=== PATIENT | male | born 1975 | race American Indian/Alaskan Native ===

== ENCOUNTER 2021-02-03 07:53 | Observation (INO) | payer OTHER ==
[2021-02-03 08:56] LABS: Basophils # (Auto) 0.1 K/mm3 (0.0-0.1); Basophils % (Auto) 0.9 % (0.0-1.8); Eosinophils # (Auto) 0.1 K/mm3 (0.0-0.4); Eosinophils % (Auto) 1.2 % (0.0-4.3); Hematocrit 35.2 % (35.5-45.6); Hemoglobin 12.5 gm/dl (11.8-15.2); Lymphocytes # (Auto) 1.5 K/mm3 (1.2-5.4); Lymphocytes % (Auto) 16.8 % (13.4-35.0); Mean Corpuscular HGB Conc 36 % (32-34); Mean Corpuscular Volume 88 fl (84-94); Monocytes # (Auto) 0.4 K/mm3 (0.0-0.8); Monocytes % (Auto) 4.4 % (0.0-7.3); Platelet Count 218 K/mm3 (140-440); Red Blood Count 4.01 M/mm3 (3.65-5.03); Red Cell Distribution Width 12.8 % (13.2-15.2)
[2021-02-03] MEDS: SODIUM CHLORIDE 0.9% 500 ML 500 ML IV SCH ×3 (09:00→10:35)
[2021-02-03 09:07] LABS: BUN/Creatinine Ratio 17; Blood Urea Nitrogen 15 mg/dL (9-20); Calcium 9.7 mg/dL (8.4-10.2); Hemolysis Index 0; INR 0.95 (0.87-1.13)
[2021-02-03 09:08] LABS: Partial Thromboplastin Time 32.5 Sec. (24.2-36.6)
[2021-02-03] MEDS ORDERED: ASPIRIN 81 MG TAB CHEW PO SCH (10:00)
[2021-02-03] MEDS: fentaNYL 100 MCG/2 ML INJ ONE ×3 (10:24→11:08)
[2021-02-03] MEDS: MIDAZOLAM 2 MG/2 ML INJ ONE ×2 (10:24→10:37)
[2021-02-03] MEDS: VERAPAMIL 5 MG/2 ML INJ ONE ×2 (10:25→10:46)
[2021-02-03] MEDS: LIDOCAINE (2%) 20 MG/1 ML VIAL 20 ML MDV INFILTRATI ONE ×2 (10:25→10:37)
[2021-02-03] MEDS: HEPARIN 10,000 UNITS/10 ML VIAL ONE ×6 (10:25→11:44)
[2021-02-03] MEDS: NITROGLYCERIN SYRINGE 3 ML ONE ×2 (10:27→10:46)
[2021-02-03] MEDS: HEPARIN/NS 5000 UNIT/500ML 1,000 ML IR ONE ×2 (10:27→10:35)
[2021-02-03] MEDS ORDERED: NITROGLYCERIN SYRINGE 3 ML ONE (11:13)
--- NOTE | 2021-02-03 11:20 | Electrocardiograph Report ---
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
[2021-02-03] MEDS ORDERED: ALUM-MAG HYDROXIDE-SIMETHICONE 200-200-20MG/5ML ORAL LIQD 30 ML ONE (11:26)
[2021-02-03] MEDS ORDERED: CLOPIDOGREL 75 MG TAB ONE (11:26)
[2021-02-03] MEDS ORDERED: HEPARIN 10,000 UNITS/10 ML VIAL ONE (11:33)
--- NOTE | 2021-02-03 11:53 | Event Note ---
Date: 02/03/21 Patient presented for outpatient coronary intervention. A cardiac catheterization at another hospital revealed severe diffuse disease of the right coronary artery. We performed successful angioplasty with serial deployment of 3.5 mm drug-eluting stent in the proximal mid and distal segments of the right coronary artery. Excellent angiographic result post intervention. No complications. The patient will be placed on optimal medical therapy including dual oral antiplatelet therapy with aspirin and Plavix. He will be admitted for 23 post intervention observation, anticipate discharge tomorrow morning.
[2021-02-03] MEDS ORDERED: SODIUM CHLORIDE 0.9% 1000 ML 1,000 ML IV SCH (12:00)
[2021-02-03] MEDS ORDERED: ACETAMINOPHEN 325 MG TAB PO PRN (12:00)
[2021-02-03] MEDS ORDERED: ONDANSETRON 4 MG/2 ML INJ IV PRN (12:30)
--- NOTE | 2021-02-03 12:37 | Cardiac Catherization Report ---
DATE OF SERVICE: 02/03/2021 CORONARY ANGIOPLASTY REPORT REASON FOR PROCEDURE: The patient is a 46-year-old man who underwent an outpatient cardiac catheterization at another hospital for chest pain and abnormal noninvasive studies, found with severe diffuse disease of the proximal and mid segments of the right coronary artery. There was a long, 85% stenosis of the proximal segment, followed by another long 80% stenosis of the mid segment, followed by another 85-90% stenosis just after the acute margin. He was referred for coronary intervention. The patient has already been treated with maximal antianginal medications as well as a dual oral antiplatelet therapy. PROCEDURES: 1. Coronary angioplasty and stenting of the right coronary artery. 2. Sedation time start 10:37, end 11:21. DESCRIPTION OF PROCEDURE: The patient was prepped and draped in a sterile fashion after informed consent. The right radial cath site was prepped and draped after negative Rafael's test. The right radial artery was entered using Seldinger technique followed by placement of a 6-Finnish hydrophilic sheath. Routine radial cocktail was administered via the sheath. We selected a #1 right Amplatz guiding catheter and advanced to the right coronary ostium. Pre-intervention angiograms were taken. A 0.014 inch Electrical Instrument Technician 50 guidewire was then introduced into the vessel, across the lesional segments. After wire placement in the distal vessel, we then used a 3.0 mm balloon catheter to predilate the diffusely diseased vessel at these lesional segments. We then commenced serial stenting, with a 3.5 mm drug-eluting stents deployed from just beyond the acute margin, all the way to the proximal segment. Following stenting and post-dilatation, there was an excellent angiographic result, zero residual stenosis and SERA 3 flow maintained on this vessel. The procedure was well tolerated by the patient and there were no complications. The catheters and wires were removed, sheath removed and hemostasis achieved using a TR band. The patient was returned to the postprocedure unit in stable condition. CONCLUSION: Successful angioplasty and stenting of the diffusely diseased right coronary artery, with serial, 3.5 mm drug-eluting stents deployed in the proximal, mid segment and beyond the acute margin. TID: [id number] RECEIPT: [id number] CA/PRE
[2021-02-03] MEDS ORDERED: traMADol 50 MG TAB PO PRN (13:00)
[2021-02-03] MEDS: VALSARTAN 40 MG TAB PO SCH (15:43)
[2021-02-03] MEDS ORDERED: ZOLPIDEM 5 MG TAB PO PRN (22:00)
[2021-02-03] MEDS: carvediloL 3.125 MG TAB PO SCH (23:15)
[2021-02-04 06:11] LABS: Basophils % (Auto) 0.2 % (0.0-1.8); Eosinophils # (Auto) 0.1 K/mm3 (0.0-0.4); Eosinophils % (Auto) 1.3 % (0.0-4.3); Hematocrit 32.6 % (35.5-45.6); Hemoglobin 11.3 gm/dl (11.8-15.2); Lymphocytes # (Auto) 1.3 K/mm3 (1.2-5.4); Lymphocytes % (Auto) 16.4 % (13.4-35.0); Mean Corpuscular HGB Conc 35 % (32-34); Mean Corpuscular Volume 89 fl (84-94); Monocytes # (Auto) 0.5 K/mm3 (0.0-0.8); Monocytes % (Auto) 5.8 % (0.0-7.3); Platelet Count 199 K/mm3 (140-440); Red Blood Count 3.67 M/mm3 (3.65-5.03); Red Cell Distribution Width 12.8 % (13.2-15.2)
[2021-02-04 06:34] LABS: BUN/Creatinine Ratio 13; Blood Urea Nitrogen 13 mg/dL (9-20); Calcium 8.9 mg/dL (8.4-10.2); Hemolysis Index 2
[2021-02-04 06:45] LABS: Chol/HDL Ratio 3.69 %; HDL Cholesterol 33 mg/dL (40-59); LDL Cholesterol,Direct 79 mg/dL (50-130)
--- NOTE | 2021-02-04 08:40 | XRay Report ---
CHEST 1 VIEW INDICATION: post pci. COMPARISON: None FINDINGS: Support devices: None. Heart: Borderline to mild cardiomegaly is evident. Lungs/Pleura: Lungs are clear with no evidence for infiltrate, pleural fluid or pneumothorax. Additional findings: None. IMPRESSION: Borderline to mild cardiomegaly. Lungs clear. Signer Name: Santi Bee Jr, MD Signed: 02/04/2021 8:36 AM Workstation Name: [id number]
[2021-02-04 08:45] VITALS: BP 118/83
[2021-02-04] MEDS: VALSARTAN 40 MG TAB PO SCH (09:00)
[2021-02-04] MEDS: carvediloL 3.125 MG TAB PO SCH (09:01)
--- NOTE | 2021-02-04 09:53 | Short Stay Summary ---
Short Stay Documentation Date of service: 02/04/21 - History H&P: obtained from office - Allergies and Medications Current Medications: Allergies No Known Allergies Allergy (Unverified 02/03/21 08:30) Home Medications Medication Instructions Recorded Confirmed Last Taken Type Aspirin [Aspirin BABY CHEW TAB] 81 mg PO QDAY 02/03/21 02/03/21 02/03/21 08:40 History 81 mg AtorvaSTATin [Lipitor] 40 mg PO QHS 02/03/21 02/03/21 02/02/21 History 1 tab Clopidogrel [Plavix] 75 mg PO QDAY 02/03/21 02/03/21 02/03/21 History 0840 Furosemide [Lasix] 40 mg PO DAILY 02/03/21 02/03/21 02/02/21 History 1 tab Nitroglycerin [Nitrostat] 0.4 mg SL Q5M PRN 02/03/21 02/03/21 Unknown History Valsartan [Diovan] 40 mg PO DAILY 02/03/21 02/03/21 02/02/21 History 1 tab carvediloL [Coreg] 3.125 mg PO BID 02/03/21 02/03/21 02/02/21 History 2 tabs Active Medications Acetaminophen (Acetaminophen 325 Mg Tab) 650 mg PO Q4H PRN PRN Reason: Pain MILD(1-3)/Fever >100.5/CASTILLO Aspirin (Aspirin 81 Mg Tab Chew) 81 mg PO QDAY [facility] Last Admin: 02/04/21 09:00 Dose: 81 mg Documented by: Atorvastatin Calcium (Atorvastatin 40 Mg Tab) 40 mg PO QHS [facility] Last Admin: 02/03/21 23:15 Dose: 40 mg Documented by: Carvedilol (Carvedilol 3.125 Mg Tab) 3.125 mg PO BID [facility] Last Admin: 02/04/21 09:01 Dose: 3.125 mg Documented by: Clopidogrel Bisulfate (Clopidogrel 75 Mg Tab) 75 mg PO QDAY [facility] Last Admin: 02/04/21 09:00 Dose: 75 mg Documented by: Furosemide (Furosemide 40 Mg Tab) 40 mg PO DAILY [facility] Last Admin: 02/04/21 09:01 Dose: 40 mg Documented by: Isosorbide Mononitrate (Isosorbide Mononitrate Er 30 Mg Tab) 30 mg PO QDAY [facility] Last Admin: 02/04/21 09:01 Dose: 30 mg Documented by: Ondansetron HCl (Ondansetron 4 Mg/2 Ml Inj) 4 mg IV Q8H PRN PRN Reason: N/V unrelieved by Reglan Potassium Chloride (Potassium Chloride Er 10 Meq Tab) 10 meq PO QDAY [facility] Last Admin: 02/04/21 09:01 Dose: 10 meq Documented by: Potassium Chloride (Potassium Chloride Er 20 Meq Tab) 40 meq PO ONCE ONE Stop: 02/04/21 09:43 Tramadol HCl (Tramadol 50 Mg Tab) 50 mg PO Q4H PRN PRN Reason: Pain, Mild (1-3) Valsartan (Valsartan 40 Mg Tab) 40 mg PO DAILY [facility] Last Admin: 02/04/21 09:00 Dose: 40 mg Documented by: Zolpidem Tartrate (Zolpidem 5 Mg Tab) 5 mg PO QHS PRN PRN Reason: Sleep - Physical exam General appearance: no acute distress HEENT: PERRLA Lungs: Clear to auscultation Heart: Regular rate, Normal S1, Normal S2 Extremities: No edema - Brief post op/procedure progress note Procedure: Patient presented for outpatient coronary intervention. A cardiac catheterization at another hospital revealed severe diffuse disease of the right coronary artery. We performed successful angioplasty with serial deployment of 3.5 mm drug-eluting stent in the proximal mid and distal segments of the right coronary artery. Excellent angiographic result post intervention. No complications. Condition: stable - Hospital course Hospital course: Stable overnight observation. - Disposition Condition at discharge: Good Disposition: DC-01 TO HOME OR SELFCARE Short Stay Discharge Plan Activity: advance as tolerated Weight Bearing Status: Full Weight Bearing Diet: low fat, low cholesterol, low salt Wound: open to air, keep clean and dry Follow up with: PRIMARY CARE, [Primary Care Provider] - 7 Days MINA ORTIZ MD [Staff Physician] - 7 Days Prescriptions: ISOSORBIDE MONOnitrate [Imdur ER] 30 mg PO QDAY #30 tablet Potassium Chloride [K-Dur] 10 meq PO QDAY #30 tablet
--- NOTE | 2021-02-04 09:56 | Electrocardiograph Report ---
[facility] Test Date: 2021-02-03 Test Time: 12:07:00 Pat Name: TIFFANY JEFFERY Department: ED Room: A453 Gender: M Program Aide: NAYAN : 1975 Requested By: YESI MOREIRA Order Number: [id number] Reading MD: Tee Luna Measurements Intervals [place] Rate: 61 P: 17 VT: 145 QRS: -9 QRSD: 100 T: QT: 424 QTc: 428 Interpretive Statements Sinus rhythm Left ventricular hypertrophy Nonspecific T abnormalities, lateral leads Compared to ECG 02/03/2021 09:02:52 T-wave abnormality now present Electronically Signed On 02-04-2021 9:55:46 EDT by Tee Luna
[2021-02-04] MEDS ORDERED: CLOPIDOGREL 75 MG TAB PO SCH (10:00)
[2021-02-04] MEDS ORDERED: ASPIRIN 81 MG TAB CHEW PO SCH (10:00)
[2021-02-04] MEDS ORDERED: POTASSIUM CHLORIDE ER 10 MEQ TAB PO SCH (10:00)
[2021-02-04] MEDS ORDERED: FUROSEMIDE 40 MG TAB PO SCH (10:00)
--- NOTE | 2021-02-04 10:05 | Electrocardiograph Report ---
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
[2021-02-04] MEDS ORDERED: POTASSIUM CHLORIDE ER 20 MEQ TAB PO SCH (14:00)
== END 2021-02-04 13:05 | disposition home or self-care (01) ==
LOC: CATHLABREC 07:53 → 4A 11:47
PROVIDERS: ADMIT Internal Medicine Cardiovascular Disease; ATTEND Internal Medicine Cardiovascular Disease
DX: I25.10 Atherosclerotic heart disease of native coronary artery without angina pectoris (principal); I11.0 Hypertensive heart disease with heart failure; I50.9 Heart failure, unspecified; I42.0 Dilated cardiomyopathy; E66.9 Obesity, unspecified; R94.31 Abnormal electrocardiogram [ECG] [EKG]; Z98.61 Coronary angioplasty status; Z79.82 Long term (current) use of aspirin; Z79.02 Long term (current) use of antithrombotics/antiplatelets; Z68.39 Body mass index [BMI] 39.0-39.9, adult
CPT/HCPCS: 36415; 71045; 80048; 80061; 84484; 85025; 85610; 85730; 92928; 93005; 96360; 96361; A9270; C1725; C1769; C1874; C1887; C1894; C9600; G0378; J1644; J2250; J3010; J7030; J7040; Q9967